=== PATIENT | female | born 1980 | race African-American/Black ===

== ENCOUNTER 2017-06-18 00:49 | Emergency (ER) | payer BC, OTHER ==
[~2017-06-18] VITALS: Ht 160 cm; Wt 98.4 kg
[~2017-06-18 00:49] MED LIST: ALBUTEROL2.5 MG/0.5 INH; BREO ELLIPTA 11 EACH IH; BREO ELLIPTA 21 EACH IH; BUTALB-ACETAMI1 EACH PO; CLEOCIN HCL150 MG PO; CYMBALTA60 MG PO; HYDROCHLOROTHIA25 M2 PO; IBUPROFEN 600600 M1 PO; INDOMETHACIN 2525 MG PO; KLOR-CON 1010 MEQ PO; LANOLIN56 GM; LISINOPRIL20 MG PO; MAXALT MLT ODT10 MG PO; NEURONTIN 300300 M1 PO; NORCO 5-325 TA1 EACH PO; PERCOCET 5-3251 EACH; PHENERGAN 25 MG25 M1 PO; PROAIR HFA8.5 GM INH; PROVENTIL HFA6.7 G1 INH; TOPAMAX50 MG PO; TOPROL XL100 MG PO; TRAMADOL 50 MG50 MG PO; TRANDATE 200 M200 MG PO; TUSSIONEX PENN473 ML PO; VENTOLIN HFA 1818 GM; ZOFRAN ODT4 MG PO; ZOLOFT50 MG PO; ZPAK PO
[2017-06-18] MEDS ORDERED: TESSALON PERLE100 MG PO (02:21)
[2017-06-18] MEDS ORDERED: BUTALB-APAP-CA1 EACH PO (02:21)
[2017-06-18] MEDS ORDERED: ZPAK PO (02:21)
[2017-06-18 02:30] VITALS: BP 144/104
== END 2017-06-18 02:30 | disposition home or self-care (01) ==
LOC: ER 00:49
DX: J06.9 Acute upper respiratory infection, unspecified (principal); J40 Bronchitis, not specified as acute or chronic; G43.909 Migraine, unspecified, not intractable, without status migrainosus; J45.909 Unspecified asthma, uncomplicated; I10 Essential (primary) hypertension; Z88.8 Allergy status to other drugs, medicaments and biological substances

== ENCOUNTER 2017-11-02 07:08 | Emergency (ER) | payer OTHER ==
[~2017-11-02] VITALS: Ht 160 cm; Wt 102.1 kg
[~2017-11-02 07:08] MED LIST changes: +BUTALB-APAP-CA1 EACH PO; +TESSALON PERLE100 MG PO
[2017-11-02] MEDS ORDERED: COZAAR 25 MG TA25 M1 PO (07:28)
[2017-11-02] MEDS ORDERED: PROAIR HFA8.5 GM INH (08:17)
[2017-11-02] MEDS ORDERED: ZPAK PO (08:17)
== END 2017-11-02 08:59 | disposition home or self-care (01) ==
LOC: ER 07:08
DX: J98.8 Other specified respiratory disorders (principal); J45.909 Unspecified asthma, uncomplicated; I10 Essential (primary) hypertension; Z98.890 Other specified postprocedural states

== ENCOUNTER 2019-06-16 22:25 | Emergency (ER) | payer OTHER ==
[~2019-06-16] VITALS: Ht 160 cm; Wt 99.8 kg
[~2019-06-16 22:25] MED LIST changes: +COZAAR 25 MG TA25 M1 PO
[2019-06-17] MEDS ORDERED: BUTALB-APAP-CA1 EACH PO (00:40)
[2019-06-17 01:31] VITALS: BP 141/96
== END 2019-06-17 01:33 | disposition home or self-care (01) ==
LOC: ER 22:25
DX: G43.909 Migraine, unspecified, not intractable, without status migrainosus (principal); F17.200 Nicotine dependence, unspecified, uncomplicated; J45.909 Unspecified asthma, uncomplicated; I10 Essential (primary) hypertension; Z98.890 Other specified postprocedural states; Z88.8 Allergy status to other drugs, medicaments and biological substances

== ENCOUNTER 2019-09-23 10:28 | Emergency (ER) | payer BC, OTHER ==
[~2019-09-23] VITALS: Ht 160 cm; Wt 106.6 kg
[2019-09-23 12:21] VITALS: BP 126/78
== END 2019-09-23 12:21 | disposition home or self-care (01) ==
LOC: ER 10:28
DX: S83.8X1A Sprain of other specified parts of right knee, initial encounter (principal); J45.909 Unspecified asthma, uncomplicated; I10 Essential (primary) hypertension; G43.909 Migraine, unspecified, not intractable, without status migrainosus; Z98.890 Other specified postprocedural states; Z98.51 Tubal ligation status; Z88.8 Allergy status to other drugs, medicaments and biological substances; X50.9XXA Other and unspecified overexertion or strenuous movements or postures, initial encounter; Y93.89 Activity, other specified; Y92.89 Other specified places as the place of occurrence of the external cause; Y99.8 Other external cause status